=== PATIENT | female | born 1990 | race African-American/Black ===

== ENCOUNTER 2016-11-30 07:44 | Emergency (ER) | payer OTHER ==
[~2016-11-30] VITALS: Ht 177.8 cm; Wt 70.3 kg
[~2016-11-30 07:44] MED LIST: CLARITIN10 MG PO; IBUPROFEN 600600 M1 PO; NAPROSYN500 MG PO; NOHOMEMEDICATIONS; NORCO 5-325 TA1 EACH PO; SEROQUEL 25 MG25 M1 PO; TRILEPTAL300 MG PO; ZPAK PO
[2016-11-30 10:07] VITALS: BP 132/90
== END 2016-11-30 10:12 | disposition home or self-care (01) ==
LOC: ER 07:44
DX: R51 Headache (principal); F31.9 Bipolar disorder, unspecified; F17.210 Nicotine dependence, cigarettes, uncomplicated